=== PATIENT | male | born 1955 | race Caucasian/White ===

== ENCOUNTER → 2016-06-12 | Outpatient (CLI) | payer OTHER ==
--- NOTE | 2016-06-12 16:19 | KCIC ---
Ankle right, three views Indication: Right ankle pain and swelling. Time of exam 4:09 p.m. Three-views of the right ankle were obtained. Alignment is normal. Ankle mortise is well maintained. The talar dome is smooth. No fracture or dislocation is identified. Impression: No acute bony abnormality is detected. Electronically signed by: Gene Chang MD (Jun 12, 2016 16:18:44)
== END | disposition home or self-care (01) ==
LOC: KCIC 16:00
PROVIDERS: ATTEND Family Medicine
DX: M25.471 Effusion, right ankle (principal); M25.571 Pain in right ankle and joints of right foot
CPT/HCPCS: 73610

== ENCOUNTER → 2021-06-17 | Outpatient (CLI) | payer OTHER ==
[~2021-06-17] MED LIST: BUPIVACAINE MPF 0.5% 10 ML VIAL. IJ ONE; IOHEXOL 300 MG/ML 50 ML VIAL. INT ART ONE; LIDOCAINE 1% Multi-Dose 20 ML VIAL. INJ ONE; TRIAMCINOLONE PRES.FREE 40 MG/ML VIAL. INT ART ONE
--- NOTE | 2021-06-17 15:57 | RAD ---
IR ARTHROCENTESIS ASP/INJ RIGHT History: Right hip osteoarthritis Technique: Patient was informed of the risks to include pain, infection, bleeding, allergic reaction. All questions were answered. Patient signed a written consent form for right hip injection for pain therapy. Patient was placed in supine position on the fluoroscopy table. The external skin site overl mary the right hip was prepped and draped in the usual sterile fashion. Betadine was utilized for katie ansing solution. 1% lidocaine was utilized for local anesthesia to the depth of the bone. 22-gauge sp inal needle was advanced under fluoroscopy to depth of the bone. Small amount contrast was injected c onfirming intra-articular location. Mixture of 2 cc bupivacaine and 40 mg Kenalog were injected durin g fluoroscopic visualization. Needle was removed. There were no immediate complications. Bandage was applied. Fluoroscopy time 0.3 minutes Fluoroscopic images: 1. Impression: 1. Successful right hip steroid injection. Electronically signed by: Gabriel Joy DO (06/17/2021 3:55 PM) [id number]
== END | disposition home or self-care (01) ==
LOC: RAD 13:08
PROVIDERS: ATTEND Orthopaedic Surgery
DX: M16.11 Unilateral primary osteoarthritis, right hip (principal)
CPT/HCPCS: 20610; 77002; J3490